=== PATIENT | male | born 1985 | race Two or more races ===

== ENCOUNTER 2019-03-09 03:53 | Emergency (ER) | payer BC, OTHER ==
[~2019-03-09] VITALS: Ht 170.2 cm; Wt 70.3 kg
[2019-03-09 04:07] VITALS: BP 118/76
[2019-03-09] MEDS ORDERED: LORAZEPAM 1 MG TABLET ONE (04:25)
[2019-03-09] MEDS ORDERED: LORAZEPAM 1 MG TABLET PO ONE (04:30)
== END 2019-03-09 05:23 | disposition home or self-care (01) ==
LOC: ER 03:54
DX: F41.9 Anxiety disorder, unspecified (principal); Z98.890 Other specified postprocedural states